=== PATIENT | female | born 1985 ===

== ENCOUNTER 2023-02-18 20:58 | Emergency (ER) | payer SELFPAY ==
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
[2023-02-18 21:02] VITALS: BP 119/88; PULSE 89; RESP 18; TEMP 36.8; O2SAT 97; BMI 28.0
== END 2023-02-19 01:33 | disposition left against medical advice (07) ==
LOC: HO.ED 02-19 01:20
PROVIDERS: Emergency Provider Emergency Medicine
DX: Z04.1 Encounter for examination and observation following transport accident (principal); M25.512 Pain in left shoulder; M54.2 Cervicalgia
CPT/HCPCS: 70450; 72125; 73030; 99281; 99284

== ENCOUNTER 2023-05-15 12:08 | Emergency (ER) | payer SELFPAY ==
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
[2023-05-15 12:16] VITALS: BP 145/98; PULSE 72; O2SAT 99
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
[2023-05-15 12:26] VITALS: BP 116/84; PULSE 72; RESP 16; TEMP 36.4; O2SAT 96; BMI 24.0
[2023-05-15 13:49] VITALS: BP 121/81; PULSE 72; RESP 20; TEMP 36.5; O2SAT 98
[2023-05-15] MEDS: Acetaminophen 325 MG TABLET 650 MG PO (15:06)
[2023-05-15 16:06] VITALS: BP 115/77; PULSE 73; RESP 16; TEMP 36.6; O2SAT 99
[2023-05-15 16:21] VITALS: BP 115/77; PULSE 73; RESP 16; TEMP 36; O2SAT 99
== END 2023-05-15 16:23 | disposition home or self-care (01) ==
PROVIDERS: Emergency Provider Emergency Medicine
DX: S49.92XA Unspecified injury of left shoulder and upper arm, initial encounter (principal); S37.002A Unspecified injury of left kidney, initial encounter; R51.9 Headache, unspecified; M54.2 Cervicalgia; M25.512 Pain in left shoulder; M25.562 Pain in left knee; V43.52XA Car driver injured in collision with other type car in traffic accident, initial encounter; Y93.9 Activity, unspecified; Y92.410 Unspecified street and highway as the place of occurrence of the external cause; Y99.8 Other external cause status
CPT/HCPCS: 70450; 72125; 73030; 73562; 99284

== ENCOUNTER 2023-06-09 16:38 | Outpatient (REF) | payer OTHER, SELFPAY ==
[2023-06-09 17:52] LABS: MANUAL DIFF FLAG NO
[2023-06-09 18:09] LABS: Estimated Average Glucose 100 mg/dL; Hemoglobin A1c % 5.1 % (<6.0)
[2023-06-09 18:20] LABS: Alanine Aminotransferase 24 U/L (0-31); Alkaline Phosphatase 50 U/L (39-117); Anion Gap 11 (12-20); Aspartate Amino Transferase 18 U/L (5-31); Bilirubin Total 0.7 mg/dL (0.0-1.0); Blood Urea Nitrogen 16 mg/dL (9-16); Calcium 8.7 mg/dL (8.4-10.2); Carbon Dioxide 27 mmol/L (22-29); Chloride 106 mmol/L (96-108); Cholesterol 198 mg/dL (<200); Estimated Glomerular Filt Rate > 60; Glucose Random 85 mg/dL (60-115); HDL Cholesterol 49 mg/dL (>40); LDL Cholesterol Calculated 123 mg/dL (<100); Potassium 3.9 mmol/L (3.3-5.1); Sodium 140 mmol/L (135-145); Total Protein 7.1 g/dL (6.5-8.0); Triglycerides 131 mg/dL (<150)
[2023-06-09 18:38] LABS: TSH reflex Free T4 1.29 uIU/mL (0.32-4.0)
[2023-06-09 19:02] LABS: Basophils Percent Auto 0.4 % (0-2); Eosinophils Absolute Auto 0.1 X10*3/uL (0.0-0.4); Hematocrit 40.4 % (37.0-47.0); Hemoglobin 13.9 g/dl (12.0-16.0); Imm Gran Abs Auto 0.02 X10*3/uL (0.00-0.03); Imm Gran Pct Auto 0.3 % (0.0-0.4); Lymphocytes Absolute Auto 2.8 X10*3/uL (1.2-4.9); Lymphocytes Percent Auto 41.3 % (20-40); Mean Corpuscular HGB Conc 34.4 g/dl (31.0-35.0); Mean Corpuscular Hemoglobin 31.6 pg (27.0-33.0); Mean Corpuscular Volume 91.8 fL (80.0-98.0); Mean Platelet Volume 10.6 fL (9.4-12.3); Monocytes Absolute Auto 0.5 X10*3/uL (0.1-1.2); Neutrophils Absolute Auto 3.4 x10*3/uL (2.0-8.3); Platelet Count 266 X10*3/uL (160-400); Red Cell Distribution Width 12.2 % (11.0-16.0); White Blood Count 6.8 X10*3/uL (4.8-10.8)
[2023-06-10 08:51] LABS: HIV AB/AG Nonreactive (Nonreactive); HIV Num 1 0.05 S/CO (0.00-0.99); ~HepC Num1 0.25 S/CO (0.00-0.79); ~Hepatitis C Antibody Nonreactive (Nonreactive)
[2023-06-12 03:04] LABS: C. trachomatis RNA TMA NOT DETECTED (NOT DETECTED); N. gonorrhoeae RNA TMA NOT DETECTED (NOT DETECTED); Trichomonas (NAAT) NOT DETECTED (NOT DETECTED)
[2023-06-12 22:24] LABS: HPV 16 RNA NOT DETECTED (NOT DETECTED); HPV mRNA E6/E7 rflx Detected (Not Detected)
== END 2023-06-09 16:39 | disposition home or self-care (01) ==
LOC: HO.HHCL 16:38
PROVIDERS: Visit Provider Nurse Practitioner Family
DX: E28.2 Polycystic ovarian syndrome (principal); Z12.4 Encounter for screening for malignant neoplasm of cervix; Z13.9 Encounter for screening, unspecified
CPT/HCPCS: 36415; 80053; 80061; 83036; 84443; 85025; 86803; 87389; 87491; 87591; 87624; 87625; 87661; 88142